=== PATIENT | female | born 1975 | race Caucasian/White ===

== ENCOUNTER → 2017-10-04 | Outpatient (CLI) | payer BC | END | disposition home or self-care (01) | LOC: C.LABPVFM 13:40 | PROVIDERS: ATTEND Nurse Practitioner Family | DX: N39.0 Urinary tract infection, site not specified (principal) ==

== ENCOUNTER → 2017-10-16 | Outpatient (CLI) | payer BC ==
[2017-10-16 17:29] LABS: URINE APPEARANCE CLEAR (CLEAR); URINE BILIRUBIN NEG (NEG); URINE COLOR YELLOW; URINE EPITHELIAL CELL AUTO >30 /lpf (0-5); URINE NITRITE NEG (NEG); UROBILINOGEN NEG (NEG)
[2017-10-16 17:35] LABS: MANUAL MICROSCOPIC REQUIRED? NO; REVIEW REQ? NO
== END | disposition home or self-care (01) ==
LOC: C.LABPVFM 10:39
PROVIDERS: ATTEND Nurse Practitioner Family
DX: R39.9 Unspecified symptoms and signs involving the genitourinary system (principal)

== ENCOUNTER → 2017-11-19 | Outpatient (CLI) | payer BC | END | disposition home or self-care (01) | LOC: C.LABSPEC 16:51 | PROVIDERS: ATTEND Physician Assistant | DX: N88.8 Other specified noninflammatory disorders of cervix uteri (principal) ==

== ENCOUNTER → 2017-11-19 | Outpatient (CLI) | payer BC ==
[~2017-11-19] MED LIST: GABA1CAP PO; ONDA4TAB10 SL; PRLSR20 PO; THY/30 PO; TIZA4TAB3 PO; TRAM-10 PO
== END | disposition home or self-care (01) ==
LOC: C.PAPS 09:31
PROVIDERS: ATTEND Physician Assistant
DX: N88.8 Other specified noninflammatory disorders of cervix uteri (principal)

== ENCOUNTER → 2017-11-26 | Outpatient (CLI) | payer BC ==
[2017-11-26 17:40] LABS: BASO % 0.4 %; BASO ABS # 0.03 K/uL (0-0.2); EOS % 17.9 %; EOS ABS # 1.28 K/uL (0-0.5); HEMATOCRIT 32.9 % (37-47); HEMOGLOBIN 10.6 g/dL (12.0-16.0); IG# 0.02 K/uL (0.00-0.02); LYMPH ABS # 2.44 K/uL (1.2-3.4); MEAN CELL VOLUME 86.6 fL (80-100); MEAN CORPUSCULAR HEMOGLOBIN 27.9 pg (25-34); MEAN CORPUSCULAR HGB CONC 32.2 g/dl (32-36); MEAN PLATELET VOLUME 11.8 fL (7.4-10.4); MONO % 5.4 %; MONO ABS # 0.39 K/uL (0.11-0.59); NEUT ABS # 3.01 K/uL (1.4-6.5); PLATELET COUNT 235 K/uL (130-400); RED CELL DISTRIBUTION WIDTH CV 14.7 % (11.5-14.5); RED CELL DISTRIBUTION WIDTH SD 46.6 fL (36.4-46.3); WHITE BLOOD COUNT 7.17 K/uL (4.8-10.8)
[2017-11-26 18:05] LABS: ALBUMIN 3.7 gm/dl (3.4-5.0); ALT/SGPT 17 U/L (12-78); BLOOD UREA NITROGEN 10 mg/dl (7-18); CALCIUM 8.9 mg/dl (8.5-10.1); CARBON DIOXIDE 25 mmol/L (21-32); CREATININE 0.75 mg/dl (0.60-1.20); GLUCOSE 95 mg/dl (70-99); LIPASE 115 U/L (73-393); POTASSIUM 3.8 mmol/L (3.5-5.1); SODIUM 139 mmol/L (136-145)
[2017-11-26 18:08] LABS: ALKALINE PHOSPHATASE 59 U/L (45-117); AST/SGOT 15 U/L (15-37); TOTAL PROTEIN 6.9 gm/dl (6.4-8.2)
== END | disposition home or self-care (01) ==
LOC: C.LABPVFM 13:00
PROVIDERS: ATTEND Family Medicine
DX: R10.13 Epigastric pain (principal)

== ENCOUNTER 2017-11-27 15:38 | Emergency (ER) | payer BC ==
[~2017-11-27] VITALS: Ht 160 cm; Wt 69.0 kg
[2017-11-27 15:45] VITALS: TEMP 37; Ht 160 cm; Wt 69.0 kg
[2017-11-27] MEDS ORDERED: PRLSR20 PO (17:00)
[2017-11-27] MEDS ORDERED: TRAM-10 PO (17:00)
[2017-11-27] MEDS ORDERED: GABA1CAP PO (17:00)
[2017-11-27] MEDS ORDERED: THY/30 PO (17:00)
[2017-11-27] MEDS ORDERED: TIZA4TAB3 PO (17:00)
[2017-11-27] MEDS ORDERED: GI COCKTAIL PO STA (17:06)
[2017-11-27 17:30] LABS: BASO % 0.6 %; BASO ABS # 0.04 K/uL (0-0.2); EOS % 16.5 %; EOS ABS # 1.14 K/uL (0-0.5); HEMATOCRIT 32.3 % (37-47); HEMOGLOBIN 10.7 g/dL (12.0-16.0); IG# 0.01 K/uL (0.00-0.02); LYMPH % 35.4 %; LYMPH ABS # 2.44 K/uL (1.2-3.4); MEAN CORPUSCULAR HEMOGLOBIN 28.2 pg (25-34); MEAN CORPUSCULAR HGB CONC 33.1 g/dl (32-36); MEAN PLATELET VOLUME 11.7 fL (7.4-10.4); MONO % 5.1 %; MONO ABS # 0.35 K/uL (0.11-0.59); NEUT % 42.3 %; NEUT ABS # 2.91 K/uL (1.4-6.5); PLATELET COUNT 226 K/uL (130-400); RED CELL DISTRIBUTION WIDTH CV 14.6 % (11.5-14.5); RED CELL DISTRIBUTION WIDTH SD 45.1 fL (36.4-46.3); WHITE BLOOD COUNT 6.89 K/uL (4.8-10.8)
[2017-11-27] MEDS ORDERED: LIDOCAINE HCL 2% VISC SOLN 20 ML UDC ONE (17:46)
[2017-11-27] MEDS ORDERED: ALUMINUM/MAGNESIUM SUSP 30 ML UDC ONE (17:46)
[2017-11-27 17:48] LABS: ALBUMIN 3.8 gm/dl (3.4-5.0); CALCIUM 8.6 mg/dl (8.5-10.1); CREATININE 0.72 mg/dl (0.60-1.20); POTASSIUM 3.6 mmol/L (3.5-5.1)
[2017-11-27 17:51] LABS: TOTAL PROTEIN 6.9 gm/dl (6.4-8.2)
--- NOTE | 2017-11-27 18:35 | DIAGNOSTIC IMAGING REPORT ---
SINGLE VIEW CHEST CLINICAL HISTORY: Epigastric abdominal pain. FINDINGS: An AP, portable, upright chest radiograph is obtained. No prior studies are available for comparison at the time of dictation. The cardiomediastinal silhouette is unremarkable. The lungs and pleural spaces are clear. No pneumothorax is seen. The bony thorax is grossly intact. IMPRESSION: No active disease in the chest. Electronically signed by: Kenneth Brandt M.D. 11/27/2017 6:34 PM Dictated Date/Time: 11/27/2017 6:33 PM
--- NOTE | 2017-11-27 18:39 | DIAGNOSTIC IMAGING REPORT ---
GALLBLADDER-ABD LIMITED HISTORY: 42 years-old Female epigastric pain acute epigastric abdominal pain COMPARISON: None available TECHNIQUE: Multiple real-time sonogram images of the abdominal right upper quadrant were obtained assessing grayscale appearance and color flow FINDINGS: The imaged pancreas appears to be unremarkable. The liver measures up to 15.9 cm in length and is also within normal limits without focal mass or intrahepatic biliary ductal dilation. Cholelithiasis is noted without gallbladder wall thickening or pericholecystic fluid collections. The gallbladder wall measures in the upper limits of normal at 3 mm, likely secondary to partial distention. A positive sonographic Reid sign was not reported. Common bile duct is mildly dilated at 9 mm without obstructing stone or lesion identified on these images. Imaged right kidney is unremarkable without hydronephrosis. IMPRESSION: 1. Cholelithiasis without sonographic evidence of acute cholecystitis. 2. Mild dilation of the common bile duct measuring up to 9 mm is noted without obstructing stone or lesion identified on these images. Correlate with biliary enzymes and clinical history. The above report was generated using voice recognition software. It may contain grammatical, syntax or spelling errors. Electronically signed by: Rocael Kelly M.D. 11/27/2017 6:38 PM Dictated Date/Time: 11/27/2017 6:34 PM
[2017-11-27] MEDS ORDERED: MoRPHine SULFATE 4 MG/ML 1 ML CARP\\VIAL IV STA (18:59)
[2017-11-27] MEDS ORDERED: ONDANSETRON INJ 2 MG/ML 2 ML VIAL IV STA (19:39)
[2017-11-27] MEDS ORDERED: TRAMADOL HCL 50 MG TAB PO STA (19:58)
[2017-11-27] MEDS ORDERED: ONDA4TAB10 SL (19:59)
[2017-11-27] MEDS ORDERED: ONDANSETRON HOME PACK 4MG OD TAB PO ONE (20:00)
--- NOTE | 2017-11-27 20:00 | EMERGENCY ROOM VISIT NOTE ---
History First contact with patient: 16:32 Chief Complaint: GI ASSESSMENT Stated Complaint: ULCER, PAIN, SICK, NAUSEA- PHYSICIAN REFERRED Nursing Triage Summary: "I have had really bad pain and so I finally went to the doctor. I found out I am anemic. The doctor told me if the pain got worse I should just come to the hospital. Patient was having pain for 12 days and every day it has been increasing. Today it is the worse it has been. History of Present Illness The patient is a 42 year old female who presents to the Emergency Room with complaints of persistent abdominal pain. The patient reports that she has had abdominal pain for the past 12 days. She states the pain is located in the epigastric region. She has had associated belching and increased gassiness for the past 2 days. She states that the pain worsens whenever she eats anything and she has had a decreased appetite. She reports some nausea associated with this pain. She states the pain has worsened significantly over the past few days, prompting her to come here. She rates the discomfort a 10/10. 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 She was seen by her primary care provider yesterday and had blood work which stated that she was anemic. They were going to order more testing as an outpatient. They did recommend that she begin taking Prilosec and Zantac. The patient states that she has taken Prilosec in the past, but has not taken any for a few months. She denies any chest pain, shortness of breath, changes in bowel movements or fevers. Review of Systems A complete 10 point review of systems was reviewed with the patient with pertinent positives and negatives as per history of present illness. All else were negative. Past Medical/Surgical History Medical Problems: (1) Su-Danlos syndrome Family History Non contributory Social History Smoking Status: Never Smoker Housing Status: lives with family Current/Historical Medications Scheduled Gabapentin (Neurontin), 200 MG PO DAILY Omeprazole (Prilosec), 20 MG PO DAILY Ondasetron Odt (Zofran Odt), 4 MG SL Q6H Thyroid (Hines Thyroid), 60 MG PO DAILY Scheduled PRN Tizanidine Hcl (Zanaflex), 8 MG PO BID PRN for Muscle Spasms Tramadol (Ultram), 100 MG PO TID PRN for Pain Physical Exam Vital Signs Date Time Temp Pulse Resp B/P (MAP) Pulse Ox O2 Delivery O2 Flow Rate FiO2 11/27/17 20:25 75 18 118/85 100 11/27/17 17:54 79 16 126/78 100 Room Air 11/27/17 15:45 37.0 78 18 134/97 98 Room Air Physical Exam VITALS: Vitals are noted on the nurse's note and reviewed by myself. Vital signs stable. GENERAL: This is a 42-year-old female, in no acute distress, nondiaphoretic, well-developed well-nourished. SKIN: The skin was without rashes. EARS: External auditory canals clear, tympanic membranes pearly flowers without erythema or effusion bilaterally. EYES: Pupils equal round and reactive to light and accommodation. MOUTH: Mucous membranes moist. Tonsils are not enlarged. Pharynx without erythema or exudate. HEART: Regular rate and rhythm without murmurs gallops or rubs. LUNGS: Clear to auscultation bilaterally without wheezes, rales or rhonchi. ABDOMEN: Positive bowel sounds x 4. Soft, mild tenderness in the epigastric region without guarding or rebound tenderness. NEURO: Patient was alert and oriented to person place and time. Medical Decision & Procedures ER Provider Diagnostic Interpretation: SINGLE VIEW CHEST FINDINGS: An AP, portable, upright chest radiograph is obtained. No prior studies are available for comparison at the time of dictation. The cardiomediastinal silhouette is unremarkable. The lungs and pleural spaces are clear. No pneumothorax is seen. The bony thorax is grossly intact. IMPRESSION: No active disease in the chest. GALLBLADDER-ABD LIMITED FINDINGS: The imaged pancreas appears to be unremarkable. The liver measures up to 15.9 cm in length and is also within normal limits without focal mass or intrahepatic biliary ductal dilation. Cholelithiasis is noted without gallbladder wall thickening or pericholecystic fluid collections. The gallbladder wall measures in the upper limits of normal at 3 mm, likely secondary to partial distention. A positive sonographic Reid sign was not reported. Common bile duct is mildly dilated at 9 mm without obstructing stone or lesion identified on these images. Imaged right kidney is unremarkable without hydronephrosis. IMPRESSION: 1. Cholelithiasis without sonographic evidence of acute cholecystitis. 2. Mild dilation of the common bile duct measuring up to 9 mm is noted without obstructing stone or lesion identified on these images. Correlate with biliary enzymes and clinical history. Laboratory Results 11/27/17 17:20 Red Blood Count 3.80, Mean Corpuscular Volume 85.0, Mean Corpuscular Hemoglobin 28.2, Mean Corpuscular Hemoglobin Concent 33.1, Mean Platelet Volume 11.7, Neutrophils (%) (Auto) 42.3, Lymphocytes (%) (Auto) 35.4, Monocytes (%) (Auto) 5.1, Eosinophils (%) (Auto) 16.5, Basophils (%) (Auto) 0.6, Neutrophils # (Auto ) 2.91, Lymphocytes # (Auto) 2.44, Monocytes # (Auto) 0.35, Eosinophils # (Auto ) 1.14, Basophils # (Auto) 0.04 11/27/17 17:20 Test 11/27/17 17:20 11/27/17 17:40 White Blood Count 6.89 K/uL (4.8-10.8) Red Blood Count 3.80 M/uL (4.2-5.4) Hemoglobin 10.7 g/dL (12.0-16.0) Hematocrit 32.3 % (37-47) Mean Corpuscular Volume 85.0 fL (80-100) Mean Corpuscular Hemoglobin 28.2 pg (25-34) Mean Corpuscular Hemoglobin Concent 33.1 g/dl (32-36) Platelet Count 226 K/uL (130-400) Mean Platelet Volume 11.7 fL (7.4-10.4) Neutrophils (%) (Auto) 42.3 % Lymphocytes (%) (Auto) 35.4 % Monocytes (%) (Auto) 5.1 % Eosinophils (%) (Auto) 16.5 % Basophils (%) (Auto) 0.6 % Neutrophils # (Auto) 2.91 K/uL (1.4-6.5) Lymphocytes # (Auto) 2.44 K/uL (1.2-3.4) Monocytes # (Auto) 0.35 K/uL (0.11-0.59) Eosinophils # (Auto) 1.14 K/uL (0-0.5) Basophils # (Auto) 0.04 K/uL (0-0.2) RDW Standard Deviation 45.1 fL (36.4-46.3) RDW Coefficient of Variation 14.6 % (11.5-14.5) Immature Granulocyte % (Auto) 0.1 % Immature Granulocyte # (Auto) 0.01 K/uL (0.00-0.02) Anion Gap 5.0 mmol/L (3-11) Est Creatinine Clear Calc Drug Dose 96.8 ml/min Estimated GFR () 121.4 Estimated GFR (Non- 104.8 BUN/Creatinine Ratio 14.2 (10-20) Calcium Level 8.6 mg/dl (8.5-10.1) Total Bilirubin 0.2 mg/dl (0.2-1) Aspartate Amino Transf (AST/SGOT) 14 U/L (15-37) Alanine Aminotransferase (ALT/SGPT) 19 U/L (12-78) Alkaline Phosphatase 61 U/L (45-117) Total Protein 6.9 gm/dl (6.4-8.2) Albumin 3.8 gm/dl (3.4-5.0) Globulin 3.1 gm/dl (2.5-4.0) Albumin/Globulin Ratio 1.2 (0.9-2) Lipase 138 U/L (73-393) Urine Color YELLOW Urine Appearance CLEAR (CLEAR) Urine pH 7.0 (4.5-7.5) Urine Specific [place] 1.023 (1.000-1.030) Urine Protein NEG (NEG) Urine Glucose (UA) NEG (NEG) Urine Ketones NEG (NEG) Urine Occult Blood NEG (NEG) Urine Nitrite NEG (NEG) Urine Bilirubin NEG (NEG) Urine Urobilinogen NEG (NEG) Urine Leukocyte Esterase NEG (NEG) Urine Test NEG (NEG) Medications Administered Medications (Trade) Dose Ordered Sig/Prince Route Start Time Stop Time Status Last Admin Dose Admin Al Hydroxide/Mg Hydroxide (Maalox Susp) 30 ml STK-MED ONCE .ROUTE 11/27/17 17:46 11/27/17 17:47 DC 11/27/17 17:51 30 ML Lidocaine HCl (Viscous Lidocaine 2% Soln) 20 ml STK-MED ONCE .ROUTE 11/27/17 17:46 11/27/17 17:47 DC 11/27/17 17:51 20 ML Tramadol HCl (Ultram Tab) 100 mg NOW STAT PO 11/27/17 19:58 11/27/17 19:59 DC 11/27/17 20:24 100 MG Ondansetron HCl (ZOFRAN ODT 4MG Home Pack) 1 homepack UD ONCE PO 11/27/17 20:00 11/27/17 20:02 DC 11/27/17 20:24 1 HOMEPACK ECG Rate (beats per minute): 82 Rhythm: normal sinus Findings: no acute ischemic change, no ectopy Comparison ECG Date: no prior available Medical Decision Differential diagnosis includes cholecystitis, gastroenteritis, gastritis, peptic ulcer disease, pancreatitis, bowel obstruction, diverticulitis, cardiac disease, abdominal aortic aneurysm, among others. The patient is a 42-year-old female with past medical history of Su Danlos syndrome who presents today complaining of abdominal pain over the past 12 days. Labs revealed no leukocytosis. Patient is anemic with hemoglobin of 10.7 , compared to 10.6 yesterday. No concerning elect avoid abnormalities. Liver function tests are not elevated. Creatinine is within normal limits. Lipase is within normal limits. Urinalysis was not suggestive of infection. Urine was negative. EKG was interpreted by myself and shows a normal sinus rhythm without ischemia or ectopy. Chest x-ray was unremarkable. Ultrasound of the right upper quadrant showed minimal dilation of the common bile duct without obvious obstruction. There is no elevation of LFTs and I do not suspect an acute obstruction of the common bile duct. The patient's symptoms seem most consistent with gastritis. She was instructed to start Prilosec and Zantac and just began taking these medications yesterday. She was given a GI cocktail here which did improve her symptoms. Her chronic pain was treated with tramadol, which she typically takes at home for pain. I do not feel the patient requires further workup in the emergency department. Benefits/risks of performing CT scan were discussed with the patient and she declined at this time. I did contact the on-call physician for the patient's primary care group, Dr. Bailey. She will arrange EGD and HIDA scan for the patient. Patient was encouraged to keep a very planned diet and return here for any worsening or new/concerning symptoms. The patient's case was reviewed with Dr. Ramirez, ED attending physician, who agreed with my assessment and treatment plan. Based on the patient's presentation and work up, I feel the patient is stable for outpatient treatment. The patient was educated to return to the emergency department for any worsening of their current condition or new/concerning symptoms. [] will follow up with []. Medication Reconcilliation Current Medication List: was personally reviewed by me Blood Pressure Screening Patient's blood pressure: Normal blood pressure Impression Primary Impression: Epigastric abdominal pain Departure Information Dispostion Home / Self-Care Condition GOOD Prescriptions Ondasetron Odt (ZOFRAN ODT) 4 Mg Tab 4 MG SL Q6H for Nausea, #15 TAB Prov: Irais Arauz .PHYLLIS 11/27/17 Referrals Airam Vidal (PCP) Patient Instructions My [facility] Additional Instructions You have been treated in the Emergency Department your Abdominal Pain. Laboratory results and imaging studies have ruled out any emergent causes for your abdominal pain which would warrant admission or surgery. You have been prescribed Zofran to be used for any nausea or vomiting. Take as prescribed. Zantac and Prilosec as directed by your primary care provider. For pain control, you can use the following [id number] medicines (if >12 yo): - Regular strength (325mg/tab) Tylenol (acetaminophen) 2 tabs every 4-6 hours as needed. Do not exceed 12 tablets in a 24 hour period. Avoid taking more than 4 grams (4000 mg) of Tylenol per day. This includes any other sources of acetaminophen you may take on a regular basis. Drink plenty of water and stay well hydrated. Keep a very bland diet for the next 2-3 days until you begin feeling better. Your diet should consist of foods like bananas, rice, applesauce, and toast. As with any trip to the Emergency Department, you should follow-up with your Primary Care Provider from today's visit. Call them tomorrow to arrange follow up. They will be arranging an EGD and HIDA scan for you. Return to the emergency department if your symptoms persist despite treatment plan outlined above or if the following symptoms occur: fever, worsening vomiting, worsening pain, or any other new/concerning symptoms.
[2017-11-27 20:25] VITALS: BP 118/85; PULSE 75; O2SAT 100
== END 2017-11-27 20:26 | disposition home or self-care (01) ==
LOC: C.EDB 15:39
DX: R10.13 Epigastric pain (principal); Q79.6 Ehlers-Danlos syndromes

== ENCOUNTER → 2017-12-05 | Outpatient (CLI) | payer BC ==
--- NOTE | 2017-12-05 17:01 | DIAGNOSTIC IMAGING REPORT ---
CT OF THE ABDOMEN AND PELVIS WITHOUT CONTRAST CLINICAL HISTORY: Acute epigastric pain. COMPARISON STUDY: Right upper quadrant ultrasound November 27, 2017. TECHNIQUE: Axial images of the abdomen and pelvis were obtained without IV contrast. Images were reviewed in the axial, sagittal, and coronal planes. A dose lowering technique was utilized adhering to the principles of ALARA. FINDINGS: Lung bases are clear. Evaluation of the abdomen and pelvis is suboptimal on this unenhanced examination. No renal, ureteral or bladder calculi are identified. There is no peripancreatic or pericholecystic infiltration. There is no biliary or pancreatic ductal dilatation. Caliber of small and large bowel is normal. There is a moderate amount of stool within the colon. Fat-containing supraumbilical and umbilical hernias are present. These contain no bowel loops. The appendix is normal. Intrauterine device is in place. Tampon is in place. Pelvic calcifications reflect phleboliths. There is no lymphadenopathy. There are no suspicious osseous lesions. IMPRESSION: 1. No acute process within the abdomen or pelvis on unenhanced exam. 2. Small fat-containing supraumbilical and umbilical hernias. 3. No bowel obstruction. Normal appendix. 4. Moderate amount of stool within the colon. Electronically signed by: Kin Beckford M.D. 12/05/2017 5:00 PM Dictated Date/Time: 12/05/2017 4:47 PM
== END | disposition home or self-care (01) ==
LOC: C.CTS 16:18
PROVIDERS: ATTEND Family Medicine
DX: R10.13 Epigastric pain (principal); K42.9 Umbilical hernia without obstruction or gangrene; K59.00 Constipation, unspecified

== ENCOUNTER → 2017-12-26 | Outpatient (CLI) | payer BC ==
[~2017-12-26] MED LIST changes: +GABA100C13 PO; -GABA1CAP PO
== END | disposition home or self-care (01) ==
LOC: C.PATHSPEC 16:13
PROVIDERS: ATTEND Obstetrics & Gynecology
DX: N88.8 Other specified noninflammatory disorders of cervix uteri (principal)

== ENCOUNTER → 2018-02-07 | Outpatient (CLI) | payer BC ==
[~2018-02-07] MED LIST changes: -GABA100C13 PO; +KRATOM PO; -ONDA4TAB10 SL; -TIZA4TAB3 PO; +ZNF4 PO
== END | disposition home or self-care (01) ==
LOC: C.LABSPEC 11:46
PROVIDERS: ATTEND Internal Medicine
DX: R39.9 Unspecified symptoms and signs involving the genitourinary system (principal)

== ENCOUNTER → 2018-02-26 | Outpatient (CLI) | payer BC | END | disposition home or self-care (01) | LOC: C.LABSPEC 09:50 | PROVIDERS: ATTEND Obstetrics & Gynecology ==

== ENCOUNTER → 2018-03-09 | Day surgery (SDC) | payer BC ==
[2018-01-08 15:04] VITALS: BMI 25.0
[2018-02-10 15:56] VITALS: Ht 160 cm; Wt 65.9 kg
--- NOTE | 2018-03-06 10:48 | HISTORY & PHYSICAL EXAMINATION ---
DATE OF ADMISSION: 03/09/2018 CHIEF COMPLAINT: Polypoid mass at the cervix. HISTORY OF PRESENT ILLNESS: The patient is a 42-year-old white female 2, para 2 noted to have a large polypoid mass at the external cervical os. Biopsy of this mass was consistent with endometrial polyp. An ultrasound was done showing a thin endometrial lining with no evidence of actual endometrial mass, but confirming the mass at the cervix. The patient did have a Pap smear in November 2017, which was negative. The patient has a ParaGard IUD in place and this has been in place for 6 years. ALLERGIES: THE PATIENT IS ALLERGIC TO CIPRO. MEDICATIONS: The patient takes [place] thyroid medication 60 mg daily. In addition, omeprazole 40 mg daily, Pyridium 200 mg 3 times daily as needed, tizanidine, hydrochloride 4 mg 1 tablet twice a day, tramadol 50 mg 1-2 tablets 3 times daily as needed for pain. ILLNESSES: The patient has arthritis. In addition, cervical disc problems. She also has been diagnosed with chronic interstitial cystitis. She has Su-Danlos syndrome. She does have gallstones. She gives a history of asthma. PAST SURGICAL HISTORY: She has had a tonsillectomy and adenoidectomy. FAMILY HISTORY: Her mother has hypertension. Her father suffered a CVA, also has a history of myocardial infarction. A paternal aunt had breast cancer. Her maternal grandfather had prostate cancer. SOCIAL HISTORY: The patient is . She denies smoking cigarettes or drinking alcohol. PHYSICAL EXAMINATION: VITAL SIGNS: Height 5 foot 2 inches, weight 145 pounds, blood pressure 124/86. HEENT: Grossly within normal limits. NECK: Supple without masses. CHEST: Her lungs are clear. HEART: Regular rate and rhythm. No murmurs, gallops or rubs. ABDOMEN: Soft and nontender. PELVIC: External genitalia normal. Vagina pink and stimulated. At the cervix, there is a 4-5 cm polyp present. IUD string is also noted. Otherwise, the uterus seems normal in size. Adnexa nontender with no masses palpable. EXTREMITIES: No cyanosis, clubbing or edema. IMPRESSION: A 42-year-old white female, 2, para 2 with a large polypoid mass at the cervix. PLAN: The patient is for hysteroscopy, dilation of the cervix and curettage with possible removal of polyp/lesion. She is also for removal of her IUD. The patient is aware of the risks of infection, bleeding, perforation of the uterus requiring additional surgery or treatment, risk of hospitalization and anesthesia. The patient does not want to have another IUD inserted at the time of surgery. MTDD
[~2018-03-09] VITALS: Ht 160 cm; Wt 65.9 kg
[~2018-03-09] MED LIST changes: +ATROPINE SULFATE 0.1 MG/ML 5ML SYR IV PRN; +DEXAMETHASONE SOD INJ 4 MG/ML VIAL ONE; +EpHEDrine SULFATE INJ 50 MG/ML AMP IV PRN; +FENTANYL CITRATE INJ 50 MCG/1 ML 2 ML VIAL ONE; +IBUPROFEN 200 MG TAB ONE; +IBUPROFEN 600 MG TAB PO PRN; +LACTATED RINGER'S 1000ML 1,000 ML IV SCH; +LIDOCAINE HCL 2% 2 ML VIAL (20MG/ML) ONE; +MIDAZOLAM HCL 1 MG/ML 2ML VIAL ONE; +ONDANSETRON INJ 2 MG/ML 2 ML VIAL ONE; +PROPOFOL IV EMULSION 10 MG/ML 20 ML VIAL ONE; +SODIUM CHLORIDE 0.9% 1000ML 1,000 ML IV SCH
--- NOTE | 2018-03-09 06:45 | History & Physical Bridge - SC ---
H&P Re-Evaluation Bridge Note: I have examined the patient, reviewed the History & Physical and in the interval since the performance of the History & Physical I have noted the following changes of clinical significance: No changes noted
--- NOTE | 2018-03-09 07:36 | [facility] Post Operative Brief Note ---
Immediate Operative Summary Operative Date March 09, 2018. Pre-Operative Diagnosis Polypoid mass at cervix, IUD in place Post-Operative Diagnosis Same as pre-op Procedure(s) Performed Dilatation And Curettage, Hysteroscopy, Polypectomy, Removal Of Intrauterine Device Surgeon Compensation Analyst Surgeon(s) None Estimated Blood Loss 10 cc Findings Consistent with Post-Op Diagnosis Specimens A.Polyp B.Endometrial and Endocervical Curettings C.polyp stalk Drains None Anesthesia Type General Complication(s) none Disposition Accompanied Pt To Recovery: no Disposition: Recovery Room / PACU
--- NOTE | 2018-03-09 08:00 | Discharge Instructions-SurgCtr ---
Discharge Instructions Date of Service March 09, 2018. Visit Reason for Visit: Cervical Mass Discharge Discharge Diagnosis / Problem: S/P removal of cervical mass, hysteroscopy, D&C , removal of IUD Discharge Goals Goal(s): Diagnostic testing, Therapeutic intervention Activity Recommendations Activity Limitations: per Instructions/Follow-up section Anesthesia . Post Anesthesia Instructions: If you have had General Anesthesia or IV Sedation: * Do not drive today. * Resume driving when surgeon permits. * Do not make important decisions or sign legal documents today. * Call surgeon for: 1. Temperature elevations greater than 101 degrees F. 2. Uncontrollable pain. 3. Excessive bleeding. 4. Persistent nausea and vomiting. 5. Medication intolerance (nausea, vomiting or rash). * For nausea and vomiting use only clear liquids such as: tea, soda, bouillon until nausea subsides, then gradually increase diet as tolerated. * If you have any concerns or questions, call your surgeon's office. If physician is unavailable and it is an emergency, call 911 or go to the nearest emergency room. . Instructions / Follow-Up Instructions / Follow-Up ACTIVITY RECOMMENDATIONS: * Avoid tampons, douching, hot tubs, pools, and intercourse until bleeding has stopped. * May shower as usual. * No strenuous activity for 24-48 hours. After 24-48 hours, you may do anything you feel like doing (driving and sports are okay). SPECIAL CARE INSTRUCTIONS: Special Diet: * Mild nausea may occur in the immediate post-operative period. * Take clear liquids such as tea, cola or bouillon until all nausea has subsided; you may then resume your normal diet. Special Care: * Light bleeding and vaginal spotting can last from a few days to 3-4 weeks. Call your doctor if bleeding becomes heavier than the heaviest part of your period. * Check your temperature twice a day for one week. If it goes above 100.4 degrees Fahrenheit (38.0 Celsius), notify your doctor. Call if you develop a foul vaginal discharge or have persistent severe cramping. * Call your doctor's office for an appointment for 2-4 weeks after your surgery. No intercourse until after postop visit. FOLLOW-UP VISIT: Call your doctor's office for an appointment for 2-4 weeks after your surgery. [phone] Diet Recommendations Home Diet: resume previous diet Procedures Procedures Performed: Dilatation And Curettage, Hysteroscopy, Polypectomy with Myosure, Removal Of Intrauterine Device Pending Studies Studies pending at discharge: yes List of pending studies: We will call you with the results of the tissue sent to pathology. Medical Emergencies . Who to Call and When: Medical Emergencies: If at any time you feel your situation is an emergency, please call 911 immediately. . Non-Emergent Contact Non-Emergency issues call your: [employer] Call Non-Emergent contact if: temperature is above 100.5 . . "Provider Documentation" section prepared by Winter Jauregui. .
[2018-03-09 08:31] VITALS: TEMP 36.9
--- NOTE | 2018-03-09 08:51 | Anesthesia Progress Nt - [facility] ---
Anesthesia Post Op Note Date & Time March 09, 2018 at 08:50 Vital Signs Pain Intensity: 5.0 Vital Signs Past 12 Hours Date Time Temp Pulse Resp B/P (MAP) Pulse Ox O2 Delivery O2 Flow Rate FiO2 03/09/18 08:31 36.9 74 18 116/79 (91) 100 Room Air 03/09/18 08:18 36.5 73 16 105/71 100 Room Air 03/09/18 08:15 105/71 03/09/18 08:13 74 18 97 03/09/18 08:13 73 18 03/09/18 08:11 96/56 03/09/18 08:08 75 15 03/09/18 08:08 77 15 03/09/18 08:05 98/56 03/09/18 08:03 71 13 03/09/18 08:03 78 13 100 03/09/18 08:00 99/61 03/09/18 07:58 69 13 03/09/18 07:58 69 13 100 03/09/18 07:55 107/73 03/09/18 07:53 72 12 100 03/09/18 07:53 71 12 03/09/18 07:52 72 12 03/09/18 07:52 72 12 100 03/09/18 07:50 102/73 03/09/18 07:47 36.2 74 16 107/73 100 Mask 03/09/18 07:47 78 03/09/18 07:47 87 97/74 100 03/09/18 06:30 36.5 80 16 112/73 (86) 99 Room Air Notes Mental Status: alert / awake / arousable, participated in evaluation Pt Amnestic to Procedure: Yes Nausea / Vomiting: adequately controlled Pain: adequately controlled Airway Patency, RR, SpO2: stable & adequate BP & HR: stable & adequate Hydration State: stable & adequate Anesthetic Complications: no major complications apparent
[2018-03-09 09:02] VITALS: BP 113/72; PULSE 76; O2SAT 99
--- NOTE | 2018-03-09 10:42 | OPERATIVE REPORT ---
DATE OF OPERATION: 03/09/2018 PREOPERATIVE DIAGNOSIS: Polypoid mass at the cervix and IUD in place. POSTOPERATIVE DIAGNOSIS: Same. PROCEDURES: Polypectomy with hysteroscopy and dilation and curettage of the uterus. Removal of IUD. SURGEON: Winter Jauregui MD ANESTHESIA: General. MMI TEACHER: Gustavo Kraft MD DESCRIPTION OF PROCEDURE: The patient was taken to the operating room where general anesthesia was administered. After an adequate level was obtained, she was placed in dorsal lithotomy position. Vulva, vagina, and cervix were prepped with Betadine solution. The patient was draped. Bladder was drained with a straight catheter. Weighted speculum was placed into the posterior fornix of the vagina. There was a large 4-5 cm dark red polypoid mass protruding from the cervix. This was grasped with a sponge stick. When it was grasped with a sponge stick, there was a spray of blood which hit me in the face. Cervix was then dilated enough to insert the hysteroscope. There was what appeared to be a polyp stalk and/or some additional polypoid tissue in the cavity. Photo was taken. Hysteroscope was removed and then MyoSure scope and instrument were inserted. The tissue was removed with the MyoSure. There was still a small amount of tissue present after this was done. The uterus was then curetted with a small smooth curette. Good cry was obtained in all 4 quadrants. Polyp forceps were used to remove the additional tissue. At this point, the procedure was ended. Estimated blood loss was 10 mL. The patient tolerated the procedure well and was taken to the recovery room in good condition. Specimens sent were polyp, endocervical and endometrial curettings, and polyp stalk. It should be noted that the patient's IUD was removed prior to removal of the polyp. I attest to the content of the Intraoperative Record and any orders documented therein. Any exceptions are noted below. MTDD
== END | disposition home or self-care (01) ==
LOC: X.SURG 06:20
PROVIDERS: ATTEND Obstetrics & Gynecology
DX: N84.1 Polyp of cervix uteri (principal); N84.0 Polyp of corpus uteri; E03.9 Hypothyroidism, unspecified; Z79.899 Other long term (current) drug therapy; Z90.89 Acquired absence of other organs; Z82.49 Family history of ischemic heart disease and other diseases of the circulatory system; Z82.3 Family history of stroke; Z80.3 Family history of malignant neoplasm of breast